=== PATIENT | female | born 1990 | race Caucasian/White ===

== ENCOUNTER 2019-06-21 12:02 | Outpatient (CLI) | payer OTHER | END 2019-06-21 13:52 | disposition home or self-care (01) | LOC: OBT 12:02 → L-D 12:02 → OBT 13:52 | DX: O36.8130 Decreased fetal movements, third trimester, not applicable or unspecified (principal); Z3A.38 38 weeks gestation of pregnancy | CPT/HCPCS: 76818 ==

== ENCOUNTER 2019-06-29 10:31 | Inpatient (IN) | payer OTHER ==
[2019-06-29] MEDS ORDERED: METHYLERGONOVINE 0.2 MG INJ IM (11:30)
[2019-06-29] MEDS ORDERED: OXYTOCIN 30 UNITS/LR 500 ML IV (11:30)
[2019-06-29] MEDS ORDERED: CARBOPROST 250 MCG INJ IM (11:30)
[2019-06-29] MEDS ORDERED: CEFAZOLIN 2 GM/50 ML (PMX) 50 ML IVPB ×2 (11:30→12:03)
[2019-06-29] MEDS ORDERED: MISOPROSTOL 200 MCG TAB PR ×2 (11:30→15:00)
[2019-06-29 11:56] LABS: ADD MAN DIFF? NO
[2019-06-29 11:57] LABS: WHITE BLOOD COUNT 12.5 10^3/ul (4.8-10.8)
[2019-06-29 11:57] LABS: BASOPHIL # 0.1 10^3/ul (0.0-0.1); BASOPHILS % 0.4 % (0.0-2.0); EOSINOPHILS % 0.2 % (0.0-7.0); HEMATOCRIT 36.4 % (37.0-47.0); HEMOGLOBIN 11.6 g/dl (12.0-16.0); LYMPHOCYTES # 2.6 10^3/ul (0.8-2.9); LYMPHOCYTES % 20.7 % (15.0-51.0); MEAN CORPUSCULAR HEMOGLOBIN 26.5 pg (29.0-33.0); MEAN CORPUSCULAR HGB CONC 31.9 g/dl (32.0-37.0); MEAN CORPUSCULAR VOLUME 83.3 fl (82.0-101.0); MEAN PLATELET VOLUME 10.3 fl (7.4-10.4); MONOCYTE # 0.5 10^3/ul (0.3-0.9); MONOCYTES % 4.3 % (0.0-11.0); NEUTROPHIL # 9.2 10^3/ul (1.6-7.5); NEUTROPHILS % 73.7 % (39.0-77.0); PLATELET COUNT 267 10^3/UL (140-415); RED BLOOD COUNT 4.37 10^6/ul (4.20-5.40); RED CELL DISTRIBUTION WIDTH 13.7 % (11.5-14.5)
[2019-06-29 12:16] LABS: INR 0.92; PROTIME 12.5 Sec (11.9-14.9)
[2019-06-29 12:17] LABS: PARTIAL THROMBOPLASTIN TIME 28.9 Sec (23.0-35.0)
[2019-06-29] MEDS: LACTATED RINGER'S 1,000 ML IV ×3 (12:17→20:55)
[2019-06-29 12:46] LABS: HEPATITIS B SURFACE ANTIGEN NEGATIVE (NEGATIVE)
[2019-06-29] MEDS ORDERED: FENTAnyl 50 MCG/ML VIAL (14:59)
[2019-06-29] MEDS ORDERED: morphine SULFATE/PF (10 MG/10 ML) INJ (14:59)
[2019-06-29] MEDS ORDERED: NA PHOSPHATE/BIPHOS 133 ML ENEMA PR (15:00)
[2019-06-29] MEDS ORDERED: OXYCODONE/ACETAMINOPHEN (5/325) TAB PO ×2 (15:00)
[2019-06-29] MEDS ORDERED: ONDANSETRON 4 MG INJ (15:11)
[2019-06-29] MEDS ORDERED: OXYTOCIN 10 UNIT INJ (15:12)
[2019-06-29] MEDS ORDERED: morphine 2 MG INJ IV ×2 (15:30)
[2019-06-29] MEDS ORDERED: TRIMETHOBENZAMIDE 100 MG/ML VIAL IM (15:30)
[2019-06-29] MEDS ORDERED: NALBUPHINE HCL (10 MG/1 ML) INJ IV (15:30)
[2019-06-29] MEDS ORDERED: NALOXONE (0.4 MG/ML) INJ IV (15:30)
[2019-06-29] MEDS ORDERED: DIPHENHYDRAMINE 50 MG INJ IV (15:30)
[2019-06-29] MEDS ORDERED: ONDANSETRON 4 MG INJ IV (15:30)
[2019-06-29] MEDS: OXYTOCIN 30 UNITS/LR 500 ML IV (16:28)
[2019-06-29] MEDS: IBUPROFEN 600 MG TAB PO (18:00)
[2019-06-29] MEDS: KETOROLAC 30 MG INJ IV (18:21)
[2019-06-29 18:26] LABS: RAPID PLASMA REAGIN NONREACTIVE (NR)
[2019-06-29] MEDS: SENNA/DOCUSATE NA (8.6MG/50MG) TAB PO (21:44)
[2019-06-30] MEDS: LACTATED RINGER'S 1,000 ML IV ×3 (04:47→19:29)
[2019-06-30] MEDS: IBUPROFEN 600 MG TAB PO ×5 (06:00→23:40)
[2019-06-30 06:49] LABS: ADD MAN DIFF? NO
[2019-06-30 06:53] LABS: BASOPHILS % 0.4 % (0.0-2.0); EOSINOPHILS # 0.1 10^3/ul (0.0-0.5); EOSINOPHILS % 0.6 % (0.0-7.0); HEMATOCRIT 33.9 % (37.0-47.0); HEMOGLOBIN 10.7 g/dl (12.0-16.0); LYMPHOCYTES # 2.4 10^3/ul (0.8-2.9); LYMPHOCYTES % 23.6 % (15.0-51.0); MEAN CORPUSCULAR HEMOGLOBIN 26.3 pg (29.0-33.0); MEAN CORPUSCULAR HGB CONC 31.6 g/dl (32.0-37.0); MEAN CORPUSCULAR VOLUME 83.3 fl (82.0-101.0); MEAN PLATELET VOLUME 10.5 fl (7.4-10.4); MONOCYTE # 0.6 10^3/ul (0.3-0.9); MONOCYTES % 5.7 % (0.0-11.0); NEUTROPHIL # 6.9 10^3/ul (1.6-7.5); NEUTROPHILS % 69.1 % (39.0-77.0); PLATELET COUNT 226 10^3/UL (140-415); RED BLOOD COUNT 4.07 10^6/ul (4.20-5.40); RED CELL DISTRIBUTION WIDTH 14.1 % (11.5-14.5)
[2019-06-30] MEDS: SENNA/DOCUSATE NA (8.6MG/50MG) TAB PO ×2 (11:10→21:47)
[2019-06-30] MEDS: LANOLIN HPA 1 PKT TOP (11:10)
[2019-07-01] MEDS: LACTATED RINGER'S 1,000 ML IV (03:29)
[2019-07-01] MEDS: IBUPROFEN 600 MG TAB PO ×2 (06:20→12:05)
[2019-07-01] MEDS: SENNA/DOCUSATE NA (8.6MG/50MG) TAB PO (09:59)
[2019-07-02] MEDS ORDERED: DIPHTH/TET/ACEL PERTUSS (ADULT) 0.5 ML VIAL IM* (09:00)
[2019-07-02] MEDS ORDERED: MEASLES,MUMPS,RUBELLA VACCINE INJ SC* (09:00)
== END 2019-07-01 18:27 | disposition home or self-care (01) | DRG 785 ==
LOC: L-D 10:31 → PP1 18:50
PROVIDERS: Specialist
PROC: 10D00Z1 Extraction of Products of Conception, Low, Open Approach (ICD-10-PCS; principal; 2019-06-29 12:30)
PROC: 0UB50ZZ Excision of Right Fallopian Tube, Open Approach (ICD-10-PCS; 2019-06-29 12:30)
PROC: 0UB60ZZ Excision of Left Fallopian Tube, Open Approach (ICD-10-PCS; 2019-06-29 12:30)
DX: O34.219 Maternal care for unspecified type scar from previous cesarean delivery (principal); Z3A.38 38 weeks gestation of pregnancy; Z37.0 Single live birth; Z30.2 Encounter for sterilization; Z90.79 Acquired absence of other genital organ(s)
CPT/HCPCS: 85025; 85610; 85730; 86592; 86850; 86900; 86901; 87340; 88302; 99464